=== PATIENT | female | born 1990 | race Caucasian/White ===

== ENCOUNTER → 2017-10-19 | Outpatient (CLI) | payer OTHER ==
--- NOTE | 2017-10-20 09:37 | CPEEG ---
[f rep st] ELECTROENCEPHALOGRAM DATE OF STUDY: 10/19/2017 PROCEDURE: 4-hour video EEG from 10/19, interpreted on 10/20. INTERPRETATION: This 4-hour video EEG recording is normal. There were no potentially epileptogenic abnormalities present during the recording. The patient did not have any clinical events during the video EEG monitoring session. REPORT: This 4-hour video EEG contains 10 Hz alpha activity over the posterior head regions. The background activity was normal and symmetric. There was no abnormal activation at rest or during hyperventilation or photic stimulation. The patient became drowsy and fell into sustained sleep during the recording. The patient's sleep architecture was normal and symmetric. There were some sharply contoured vertex waves and K complexes during non-REM sleep, including F -waves. This is normal sleep architecture for the patient's age. There was no abnormal activation during drowsiness or sleep, or during times of arousal. The patient did not have any clinical events during the video EEG monitoring session. . /[id number]/MODL MTDD
== END ==
LOC: FCPNEURO 11:42
PROVIDERS: ATTEND Internal Medicine Infectious Disease
DX: R29.818 Other symptoms and signs involving the nervous system (principal)